=== PATIENT | female | born 1970 | race Caucasian/White ===

== ENCOUNTER 2017-05-04 06:11 | Emergency (ER) | payer OTHER ==
[~2017-05-04] VITALS: Ht 162.6 cm; Wt 95.5 kg
[~2017-05-04 06:11] MED LIST: AMITRIPTYLINE H10 MG PO; ASPIR-LOW81 MG PO; ASPIRIN CHEWABL81 M1 PO; ASPIRIN EC325 MG PO; ATORVASTATIN CA40 MG PO; CELECOXIB200 MG PO; DEPO-PROVE150 MG/1 M IM; DEPO-PROVER150 MG/ML IM; ENDOCET 5-3251 EACH PO; GABAPENTIN300 MG PO; HYDROCODON-ACE1 EAC7 PO; IBUPROFEN800 MG PO; IRON325 M1 PO; LIPITOR10 MG PO; MED FOR REFLUX; MOTRIN600 MG PO; MUSCLE RELAXER; NOHOMEMEDS; NORCO 5/3251 TABLET PO; TRAMADOL HCL50 MG PO; TUMS500 MG PO; ULTRAM50 MG PO; VICODIN 5-3001 EACH PO
[2017-05-04 06:47] LABS: EOSINOPHIL (%) 2.1 % (0-5); EOSINOPHIL COUNT 0.2 K/uL (0-0.3); HEMATOCRIT 44.9 % (36.0-46.0); IMMATURE GRANULOCYTE (%) 0.6 % (0.0-0.7); IMMATURE GRANULOCYTE COUNT 0.1 K/uL; INSTRUMENT ABS NEUTROPHIL CT 6.4 K/uL; LYMPHOCYTE COUNT 2.3 K/uL (1.0-2.8); MCH 31.4 PG (29.0-34.0); MCHC 34.3 G/DL (30.0-36.0); MCV 91.4 FL (83-99); MEAN PLAT.VOLUME 9.9 uM^3 (9.5-12.4); MONOCYTE (%) 4.2 % (3-12); MONOCYTE COUNT 0.4 K/uL (0-0.8); NEUTROPHIL (%) 68.1 % (45-76); NEUTROPHIL COUNT 6.4 K/uL (1.8-6.4); PLATELET COUNT 230 K/uL (156-360); RBC DIS.WIDTH-CV 13.6 % (11.8-14.6); RBC DIS.WIDTH-SD 46.1 % (39-53); RED BLOOD COUNT 4.91 M/uL (3.80-5.20); WHITE BLOOD COUNT 9.5 K/uL (4.1-10.2)
[2017-05-04 06:57] LABS: CHLORIDE 107 mEq/L (99-109); POTASSIUM 3.9 mEq/L (3.7-5.4); SODIUM 142 mEq/L (136-147)
[2017-05-04 06:59] LABS: GLUCOSE 154 mg/dL (70-99)
[2017-05-04 07:00] LABS: ANION GAP 12 MEQ/L (2-14)
[2017-05-04 07:03] LABS: GFR ESTIMATE (CALCULATED) > 59 mL/min/
[2017-05-04 07:04] LABS: UREA NITROGEN (BUN) 18 mg/dL (9-23)
[2017-05-04 07:11] LABS: QUANTITATIVE HCG < 4.0 MIU/ML
[2017-05-04 07:32] LABS: BILIRUBIN NEGATIVE; COLOR YELLOW ((YELLOW)); GLUCOSE (STRIP) NEGATIVE; KETONES NEGATIVE
[2017-05-04 07:33] LABS: BLOOD TRACE; NITRITE POSITIVE; PROTEIN (STRIP) 30; UROBILINOGEN 0.2 MG/DL (0.2-1.0)
[2017-05-04 07:34] LABS: ADD MIUA? YES; LEUKOCYTES NEGATIVE
[2017-05-04 07:55] LABS: BACTERIA 2+ /HPF; CALCIUM OXALATE CRYSTALS 4+ /HPF; CRYSTALS PRESENT; EPITHELIAL CELLS 2+ /HPF; MUCUS 2+ /LPF; RED BLOOD CELLS NONE SEEN /HPF (0-5); WHITE BLOOD CELLS 0-5 /HPF (0-5)
[2017-05-04] MEDS ORDERED: NORCO 5/3251 TABLET PO (11:40)
[2017-05-04] MEDS ORDERED: FLOMAX0.4 MG PO (11:40)
[2017-05-04] MEDS ORDERED: ZOFRAN ODT8 MG PO (11:40)
[2017-05-04 12:22] VITALS: BP 132/91
== END 2017-05-04 12:37 | disposition home or self-care (01) ==
LOC: EME 06:11
PROVIDERS: Physician Assistant
DX: N13.2 Hydronephrosis with renal and ureteral calculous obstruction (principal); R11.2 Nausea with vomiting, unspecified; Z87.442 Personal history of urinary calculi; Z90.49 Acquired absence of other specified parts of digestive tract; Z87.891 Personal history of nicotine dependence
CPT/HCPCS: 74177; 76856; 80048; 81003; 84702; 85025; 99281; 99285; J2270; J2405; J3010; J7040

== ENCOUNTER 2017-06-20 20:02 | Emergency (ER) | payer OTHER ==
[~2017-06-20] VITALS: Ht 162.6 cm; Wt 95.0 kg
[~2017-06-20 20:02] MED LIST changes: +FLOMAX0.4 MG PO; +ZOFRAN ODT8 MG PO
[2017-06-20] MEDS ORDERED: RANITIDINE HCL150 MG PO (20:08)
[2017-06-20] MEDS ORDERED: PANTOPRAZOLE SO40 MG PO (20:09)
[2017-06-20] MEDS ORDERED: ATORVASTATIN CA20 MG PO (20:09)
[2017-06-20 21:53] LABS: BASOPHIL COUNT 0.1 K/uL (0-0.1); EOSINOPHIL (%) 1.4 % (0-5); EOSINOPHIL COUNT 0.2 K/uL (0-0.3); HEMATOCRIT 44.8 % (36.0-46.0); IMMATURE GRANULOCYTE (%) 0.5 % (0.0-0.7); IMMATURE GRANULOCYTE COUNT 0.1 K/uL; INSTRUMENT ABS NEUTROPHIL CT 9.4 K/uL; LYMPHOCYTE COUNT 2.9 K/uL (1.0-2.8); MCH 31.5 PG (29.0-34.0); MCHC 33.9 G/DL (30.0-36.0); MCV 92.8 FL (83-99); MEAN PLAT.VOLUME 9.8 uM^3 (9.5-12.4); MONOCYTE (%) 5.1 % (3-12); MONOCYTE COUNT 0.7 K/uL (0-0.8); NEUTROPHIL (%) 70.9 % (45-76); NEUTROPHIL COUNT 9.4 K/uL (1.8-6.4); PLATELET COUNT 276 K/uL (156-360); RBC DIS.WIDTH-CV 13.5 % (11.8-14.6); RBC DIS.WIDTH-SD 46.4 % (39-53); RED BLOOD COUNT 4.83 M/uL (3.80-5.20); WHITE BLOOD COUNT 13.3 K/uL (4.1-10.2)
[2017-06-20 22:03] LABS: CHLORIDE 110 mEq/L (99-109); POTASSIUM 4.1 mEq/L (3.7-5.4); SODIUM 142 mEq/L (136-147)
[2017-06-20 22:04] LABS: GLUCOSE 108 mg/dL (70-99)
[2017-06-20 22:06] LABS: ANION GAP 10 MEQ/L (2-14)
[2017-06-20 22:08] LABS: GFR ESTIMATE (CALCULATED) > 59 mL/min/
[2017-06-20 22:09] LABS: UREA NITROGEN (BUN) 20 mg/dL (9-23)
[2017-06-20 22:15] LABS: TROP-I INTERPRETATION NEGATIVE; TROPONIN-I < 0.01 ng/mL (0.0-0.30)
[2017-06-20 22:43] VITALS: BP 132/91
== END 2017-06-20 22:44 | disposition home or self-care (01) ==
LOC: EME → EDBD 20:02 → EME 20:02
PROVIDERS: Emergency Medicine
DX: J04.0 Acute laryngitis (principal); Z86.73 Personal history of transient ischemic attack (TIA), and cerebral infarction without residual deficits; K21.9 Gastro-esophageal reflux disease without esophagitis; Z87.891 Personal history of nicotine dependence
CPT/HCPCS: 71020; 80048; 84484; 85025; 93005; 99281; 99284; J1100

== ENCOUNTER → 2017-08-04 | Outpatient (CLI) | payer OTHER ==
[~2017-08-04] VITALS: Ht 162.6 cm; Wt 93.4 kg
[~2017-08-04] MED LIST changes: +ASPIR 8181 M1 PO; +ATORVASTATIN CA20 MG PO; +LIPITOR20 MG PO; +NIZORAL 2% CREA15 GM TP; +PANTOPRAZOLE SO40 MG PO; +PROTONIX40 MG PO; +RANITIDINE HCL150 M1 PO; +RANITIDINE HCL150 MG PO
== END | disposition home or self-care (01) ==
LOC: AMB 08:23
DX: K22.10 Ulcer of esophagus without bleeding (principal); K29.70 Gastritis, unspecified, without bleeding; K44.9 Diaphragmatic hernia without obstruction or gangrene; K21.9 Gastro-esophageal reflux disease without esophagitis; E78.5 Hyperlipidemia, unspecified; E66.9 Obesity, unspecified; Z68.35 Body mass index [BMI] 35.0-35.9, adult; Z86.73 Personal history of transient ischemic attack (TIA), and cerebral infarction without residual deficits; Z87.891 Personal history of nicotine dependence; Z79.82 Long term (current) use of aspirin
CPT/HCPCS: 88305; 88342 TC